=== PATIENT | female | born 1990 | race African-American/Black ===

== ENCOUNTER 2016-10-28 21:33 | Emergency (ER) | payer OTHER ==
[~2016-10-28] VITALS: Ht 172.7 cm; Wt 65.0 kg
[~2016-10-28 21:33] MED LIST: BACT800T5 PO; MECL25CH PO; MULT-65 PO; ZOFR4TAB3 SL; ZOLP10TA3 PO
[2016-10-28 21:36] VITALS: BP 138/86; PULSE 94; RESP 16; TEMP 97.9; O2SAT 98
[2016-10-28] MEDS ORDERED: DOXY1CAP91 (22:34)
[2016-10-28] MEDS ORDERED: AMBI10TA PO (22:34)
[2016-10-28] MEDS ORDERED: MULTCAP (22:34)
[2016-10-28] MEDS ORDERED: ADDE10 PO (22:34)
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
[2016-10-28 22:58] LABS: MEAN CORPUSCULAR HGB CONC 36.1 % (32.0-36.0)
[2016-10-28 23:28] LABS: AUTOMATED NEUTROPHIL # 5.2 TH/MM3 (1.8-7.7); BASOPHIL # 0.1 TH/MM3 (0-0.2); BASOPHIL % 1.4 % (0.0-2.0); EOSINOPHIL # 0.1 TH/MM3 (0-0.4); EOSINOPHIL % 1.2 % (0.0-4.0); HEMATOCRIT 29.6 % (35.0-46.0); LYMPH % 27.1 % (9.0-44.0); LYMPHOCYTE # 2.2 TH/MM3 (1.0-4.8); MEAN CELL VOLUME 88.5 FL (80.0-100.0); MONO % 5.9 % (0.0-8.0); NEUT % 64.4 % (16.0-70.0); PLATELET COUNT 316 TH/MM3 (150-450); RED BLOOD COUNT 3.35 MIL/MM3 (4.00-5.30); RED CELL DISTRIBUTION WIDTH 17.4 % (11.6-17.2); WHITE BLOOD COUNT 8.1 TH/MM3 (4.0-11.0)
[2016-10-28 23:30] LABS: HEMO FLAGS AUTO DIFF
[2016-10-28 23:48] LABS: AMPHETAMINE, URINE NEG (NEG); BARBITURATES, URINE NEG (NEG); COCAINE, URINE NEG (NEG)
[2016-10-28 23:50] LABS: ALT (GPT) 17 U/L (10-53); ANION GAP 11 MEQ/L (5-15); AST (GOT) 18 U/L (15-37); BICARBONATE 27.4 MEQ/L (21.0-32.0); BLOOD UREA NITROGEN 5 MG/DL (7-18); CHLORIDE 107 MEQ/L (98-107); GLOMERULAR FILTRATION RATE 138 ML/MIN (>89); POTASSIUM 3.5 MEQ/L (3.5-5.1); SODIUM (NA) 145 MEQ/L (136-145)
[2016-10-28 23:52] LABS: BACTERIA, URINE RARE /hpf; BLOOD, URINE LARGE (NEG); COMMENT (UR) CULTURE INDICATED; CULTURE IF INDICATED CULTURE INDICATED; GLUCOSE,URINE NEG (NEG); KETONE, URINE NEG (NEG); MUCUS URINE MANY /lpf (OCC); NITRITE,URINE NEG (NEG); SQUAMOUS EPITHELIAL CELL URINE 3 /hpf (0-5); URINE COLOR YELLOW (YELLW/STRAW)
[2016-10-28 23:57] LABS: TARGET CELLS 1+ (NORMAL)
[2016-10-28 23:58] LABS: ACANTHOCYTES 1+ (NORMAL); ALKALINE PHOSPHATASE 67 U/L (45-117); PLATELET ESTIMATE SMEAR NORMAL (NORMAL); PLATELET MORPHOLOGY NORMAL (NORMAL); TOTAL BILIRUBIN ADULT 1.3 MG/DL (0.2-1.0)
[2016-10-28 23:59] LABS: SCAN/DIFF AUTO DIFF CONFIRMED
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
[2016-10-29] MEDS ORDERED: NITROFURANTOIN MONOHYD MACROCR 100 MG CAP PO ONE (00:15)
--- NOTE | 2016-10-29 11:37 | EKG ---
Date Performed: 10/28/2016 Time Performed: 23:17:58 PTAGE: 26 years EKG: Sinus rhythm WITH OCCASIONAL SUPRAVENTRICULAR PREMATURE COMPLEXES BORDERLINE ECG PREVIOUS TRACING : 10/17/2011 22.00 DOCTOR: Cade Means Interpretating Date/Time 10/29/2016 11:34:33
== END 2016-10-29 01:45 | disposition left against medical advice (07) ==
LOC: NEPD 21:33
DX: R82.90 Unspecified abnormal findings in urine (principal); D64.9 Anemia, unspecified; R94.31 Abnormal electrocardiogram [ECG] [EKG]; F12.10 Cannabis abuse, uncomplicated; D57.1 Sickle-cell disease without crisis
CPT/HCPCS: 70450; 80053; 80074; 80307; 81001; 84443; 84703; 85025; 87086; 93005

== ENCOUNTER 2017-06-16 12:04 | Emergency (ER) | payer SELFPAY ==
[~2017-06-16] VITALS: Ht 175.3 cm; Wt 59.9 kg
[~2017-06-16 12:04] MED LIST changes: +ADDE10 PO; +AMBI10TA PO; -BACT800T5 PO; +DOXY1CAP91; -MECL25CH PO; -MULT-65 PO; +MULTCAP; -ZOFR4TAB3 SL; -ZOLP10TA3 PO
[2017-06-16 12:12] VITALS: BP 129/96; PULSE 160; RESP 16; TEMP 98.3; O2SAT 99
[2017-06-16] MEDS ORDERED: MULTTAB67 PO (12:25)
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
[2017-06-16 13:11] LABS: BLOOD, URINE MOD (NEG); GLUCOSE,URINE NEG (NEG); KETONE, URINE NEG (NEG); NITRITE,URINE NEG (NEG)
[2017-06-16 13:28] LABS: METHOD OF COLLECTION CLEAN CATCH
[2017-06-16 13:29] LABS: HYALINE CAST, URINE RARE /lpf (RARE); URINE COLOR YELLOW (YELLW/STRAW)
[2017-06-16 13:30] LABS: RBC, URINE 0-3 /hpf (0-3)
[2017-06-16] MEDS ORDERED: ACYCLOVIR 800 MG TAB PO ONE (13:30)
[2017-06-16] MEDS ORDERED: IBUPROFEN 600 MG TAB PO ONE (13:30)
[2017-06-16] MEDS ORDERED: LIDOCAINE HCL 1% 50 ML VIAL IM ONE (13:30)
[2017-06-16] MEDS ORDERED: cefTRIAXone 250 MG VIAL IM ONE (13:30)
[2017-06-16] MEDS ORDERED: metroNIDAZOLE 500 MG TAB PO ONE (13:30)
[2017-06-16] MEDS ORDERED: AZITHROMYCIN PWD FOR SUSP 1 GM PACKET PO ONE (13:30)
[2017-06-16 13:31] LABS: BACTERIA, URINE FEW /hpf; COMMENT (UR) CULTURE INDICATED; CULTURE IF INDICATED CULTURE INDICATED
[2017-06-16] MEDS ORDERED: METR250 PO (13:37)
[2017-06-16] MEDS ORDERED: ACYC800T PO (13:37)
[2017-06-16] MEDS ORDERED: MACR100C2 PO (13:40)
--- NOTE | 2017-06-17 15:17 | EKG ---
Date Performed: 06/16/2017 Time Performed: 12:27:45 PTAGE: 27 years EKG: Sinus rhythm Nonspecific ST and T wave abnormalities Since previous tracing, no significant change noted NORMAL E CG PREVIOUS TRACING : 10/28/2016 23.17.58 DOCTOR: Kathryn Domingo Interpretating Date/Time 06/17/2017 15:15:18
== END 2017-06-16 14:11 | disposition home or self-care (01) ==
LOC: PHED 12:04
DX: A60.00 Herpesviral infection of urogenital system, unspecified (principal); A64 Unspecified sexually transmitted disease; N39.0 Urinary tract infection, site not specified; Z87.2 Personal history of diseases of the skin and subcutaneous tissue; Z86.2 Personal history of diseases of the blood and blood-forming organs and certain disorders involving the immune mechanism
CPT/HCPCS: 81001; 84703; 93005; 96372; 99284; J0696; 87086